=== PATIENT | male | born 1975 | race Caucasian/White ===

== ENCOUNTER 2020-04-11 22:42 | Emergency (ER) | payer MEDICAID, OTHER ==
[~2020-04-11] VITALS: Ht 162.6 cm; Wt 50.0 kg
[2020-04-11] MEDS ORDERED: LORAZEPAM 2MG/ML CPJ IV ONE (23:45)
[2020-04-12 00:06] LABS: BASOPHILS % 0.7 % (0.0-2.0); EOSINOPHILS % 9.9 % (0.0-5.0); HEMATOCRIT. 39.9 % (42.0-52.0); HEMOGLOBIN. 13.9 g/dL (14.0-18.0); LYMPHOCYTES % 37.2 % (20.0-50.0); MEAN CORPUSCULAR VOLUME 94.6 fL (80.0-94.0); MEAN PLATELET VOLUME 6.2 fl (7.4-10.4); MONOCYTES % 7.4 % (2.0-8.0); NEUTROPHILS % 44.8 % (40.0-76.0); PLATELET 390 x1000/uL (130-400); RED BLOOD CELL COUNT 4.22 mill/uL (4.7-6.1); RED CELL DISTRIBUTION WIDTH 13.8 % (11.6-14.6)
[2020-04-12 00:13] LABS: CHLORIDE 109 mEq/L (98-107)
[2020-04-12 00:17] LABS: ETHANOL BLOOD 103 mg/dL
[2020-04-12 00:27] LABS: CLARITY URINE CLEAR (CLEAR); COLOR URINE YELLOW (YELLOW); KETONES URINE TRACE (NEGATIVE); LEUKOCYTE ESTERASE URINE NEGATIVE (NEGATIVE); NITRITE URINE NEGATIVE (NEGATIVE); OCCULT BLOOD URINE NEGATIVE (NEGATIVE); PROTEIN URINE TRACE (NEGATIVE); SPECIFIC GRAVITY URINE 1.027 (1.005-1.030); UROBILINOGEN URINE 0.2 E.U./dL (0.2-1.0)
[2020-04-12 00:40] LABS: *BARBITURATES SCREEN URINE NEGATIVE (NEGATIVE); *BENZODIAZEPINES SCREEN URINE NEGATIVE (NEGATIVE); CANNABINOID URINE SCREEN PRESUMTIVE POSITIVE (NEGATIVE); METHADONE URINE SCREEN NEGATIVE (NEGATIVE); OPIATES URINE SCREEN NEGATIVE (NEGATIVE); PHENCYCLIDINE URINE SCREEN NEGATIVE (NEGATIVE)
[2020-04-12 00:41] LABS: *AMPHETAMINES SCREEN URINE PRESUMTIVE POSITIVE (NEGATIVE); *COCAINE SCREEN URINE NEGATIVE (NEGATIVE)
[2020-04-13 06:48] VITALS: BP 144/83
== END 2020-04-13 09:56 | disposition left against medical advice (07) ==
LOC: EDBD 22:42 → ER 22:42
DX: F10.229 Alcohol dependence with intoxication, unspecified (principal); R41.82 Altered mental status, unspecified; F16.10 Hallucinogen abuse, uncomplicated; F15.10 Other stimulant abuse, uncomplicated; Y90.5 Blood alcohol level of 100-119 mg/100 ml
CPT/HCPCS: 36415; 71045; 80053; 80307; 80320; 80329; 85025; 93005; 96374; 99285; G0480